=== PATIENT | female | born 1990 | race Caucasian/White ===

== ENCOUNTER 2017-08-27 01:58 | Emergency (ER) | payer SELFPAY ==
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
[2017-08-27] MEDS ORDERED: HYDROmorphone HCL 2 MG/ML SDV IVP ONE (02:55)
[2017-08-27] MEDS ORDERED: IOPAMIDOL 76% 75 ML INFUS BTL 75 ML ONE (03:11)
[2017-08-27] MEDS ORDERED: NS 0.9% 150 ML BAG 150 ML ONE (03:12)
[2017-08-27] MEDS ORDERED: diphenhydrAMINE 50 MG/ML VIAL IVP ONE ×2 (03:25→03:55)
[2017-08-27 03:53] LABS: PLATELET COUNT, AUTOMATED 230 K/uL (150-450)
[2017-08-27] MEDS ORDERED: MORPHINE 2 MG/ML SYR IVP ONE (04:55)
[2017-08-27] MEDS ORDERED: LOR5/325 PO (06:44)
[2017-08-27 06:55] VITALS: BP 132/85
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
== END 2017-08-27 07:07 | disposition home or self-care (01) ==
LOC: ER 02:15
DX: S00.83XA Contusion of other part of head, initial encounter (principal); S20.219A Contusion of unspecified front wall of thorax, initial encounter; S50.312A Abrasion of left elbow, initial encounter; S50.311A Abrasion of right elbow, initial encounter; Y04.8XXA Assault by other bodily force, initial encounter
CPT/HCPCS: 70450; 70486; 70498; 71046; 71111; 73080; 73564; 84703; 85025; 96374; 96375; 99282; J1170; J1200; J2270; Q9967; 82040; 82247; 82310; 82374; 82435; 82565; 82947; 84075; 84132; 84155; 84295; 84450; 84460; 84520